=== PATIENT | male | born 1930 | race Two or more races ===

== ENCOUNTER 2016-06-05 09:27 | Emergency (ER) | payer MEDICAID, MEDICARE ==
--- NOTE | 2016-06-05 10:41 | ED Physician Chart ---
Chief Complaint/HPI - Patient Information Date Seen:: 06/05/16 Time Seen:: 10:30 Chief Complaint:: hypertension History of Present Illness:: blood pressure has been 170 systolic recently. Also has been vomiting every time he eats for the last two days. Had diarrhea twice today. Vitals:: Vital Signs - 8 hr 06/05/16 06/05/16 09:40 10:31 Temp 98.5 F 98.2 F HR 82 68 RR 16 16 BP 124/64 124/78 O2 Sat % 98 98 Historian:: Family Member Review:: Nurse's Note Reviewed Review of Systems - Review of Systems General/Constitutional: No fever, No chills Skin: No skin lesions Head: No headache Eyes: No loss of vision ENT: No earache, No sore throat Neck: No neck pain Cardio Vascular: No chest pain Pulmonary: No SOB, No wheezing GI: Nausea, Vomiting, Diarrhea G/U: No dysuria Musculoskeletal: No bone or joint pain, No muscle pain Endocrine: No polyuria, No polydipsia Psychiatric: No prior psych history Hematopoietic: No bruising Allergic/Immuno: No urticaria Neurological: No syncope Past Medical History - Past Medical History Past Medical History: HTN, DM, Arthritis, Other (osteoporosis) Family History: Diabetes Melitus, HTN Social History: Non Smoker, No Alcohol Surgical History: None Psychiatricy History: None Medication: Reviewed Family Medical History - Family Member Mother History Unknown: Yes Physical Exam - Physical Examination General/Constitutional: Well-developed, well-nourished, Alert, No distress Head: Atraumatic Eyes: Lids, conjuctiva normal, PERRL Skin: Nl inspection, No rash, No skin lesions, No ecchymosis ENMT: External ears, nose nl Other ENMT comments:: full dentures Neck: No nuchal rigidity Respiratory: Nl effort/Exclusion, Clear to Auscultation Cardio Vascular: RRR, No murmur, gallop, rubs, NL S1 S2 GI: No tenderness/rebounding/guarding, No organomegaly, No hernia, Normal BS's, Nondistended, No mass/bruits, No McBurney tenderness : No CVA tenderness Extremities: No tenderness or effusion, Normal digits & nails Neuro/Psych: Alert/oriented Misc: Normal back Labs/Radiology/EKG Results - Lab Results Results: Laboratory Tests 06/05/16 10:21 POC Glucose 159 H Laboratory Results - last 24 hr 06/05/16 06/05/16 06/05/16 10:21 10:38 10:38 WBC 10.1 RBC 4.82 Hgb 14.1 Hct 42.2 MCV 87.5 MCH 29.2 MCHC Differential 33.4 RDW 13.0 Plt Count 356 MPV 9.1 Neutrophils % 71.6 Lymphocytes % 19.0 L Monocytes % 7.5 Eosinophils % 1.9 Basophils % 0.0 Sodium 136 Potassium 5.0 Chloride 101 Carbon Dioxide 37.1 H Anion Gap 2.9 L BUN 14 Creatinine 0.9 Est GFR ( Amer) TNP Est GFR (Non-Af Amer) TNP BUN/Creatinine Ratio 15.6 Glucose 147 H POC Glucose 159 H Calcium 9.1 Lipase 5 L Comments:: Laboratory Results - last 24 hr 06/05/16 06/05/16 06/05/16 10:21 10:38 10:38 WBC 10.1 RBC 4.82 Hgb 14.1 Hct 42.2 MCV 87.5 MCH 29.2 MCHC Differential 33.4 RDW 13.0 Plt Count 356 MPV 9.1 Neutrophils % 71.6 Lymphocytes % 19.0 L Monocytes % 7.5 Eosinophils % 1.9 Basophils % 0.0 Sodium 136 Potassium 5.0 Chloride 101 Carbon Dioxide 37.1 H Anion Gap 2.9 L BUN 14 Creatinine 0.9 Est GFR ( Amer) TNP Est GFR (Non-Af Amer) TNP BUN/Creatinine Ratio 15.6 Glucose 147 H POC Glucose 159 H Calcium 9.1 Troponin I Lipase 5 L 06/05/16 13:07 WBC RBC Hgb Hct MCV MCH MCHC Differential RDW Plt Count MPV Neutrophils % Lymphocytes % Monocytes % Eosinophils % Basophils % Sodium Potassium Chloride Carbon Dioxide Anion Gap BUN Creatinine Est GFR ( Amer) Est GFR (Non-Af Amer) BUN/Creatinine Ratio Glucose POC Glucose Calcium Troponin I 0.02 Lipase - EKG Interpretations Rate & Rhythm: NSR; rate 73 Pringle: left Intervals: first degree AV block Comments:: LVH Assessment - Assessment General Assessment: ate meal in the ED without vomiting ED Septic Shock - . Is Septic Shock (SBP<90, OR Lactate>4 mmol\L) present?: No - <6hrs of presentation: Vital Signs: Vital Signs - 8 hr 06/05/16 06/05/16 09:40 10:31 Temp 98.5 F 98.2 F HR 82 68 RR 16 16 BP 124/64 124/78 O2 Sat % 98 98 Reassessment (Disposition) - Reassessment Reassessment Condition:: Improved - Diagnosis Diagnosis:: Viral gastroenteritis; hypertension by history - Aftercare/Follow up Instructions Aftercare/Follow-Up Instructions:: Refer to Discharge Instructions - Patient Disposition Discharge/Transfer:: Home Condition at Disposition:: Stable, Improved
[2016-06-05 10:49] LABS: RED BLOOD COUNT 4.82 Mil/cmm (3.80-5.80)
[2016-06-05 10:53] LABS: % EOSINOPHILS 1.9 % (0.0-5.0); % MONOCYTES 7.5 % (2.0-10.0); % NEUTROPHILS 71.6 % (40.0-80.0); HEMATOCRIT 42.2 % (39.0-49.0); HEMOGLOBIN 14.1 gm/dL (12.6-17.4); MEAN CELL VOLUME 87.5 fl (80-99); MEAN CORPUSCULAR HEMOGLOBIN 29.2 pg (27.0-31.0); MEAN CORPUSCULAR HGB CONC 33.4 pg (28.0-36.0); MEAN PLATELET VOLUME 9.1 fl; NEUTROPHILE ABSOLUTE 7.2 Th/cmm (1.8-8.0); PLATELET COUNT 356 Th/cmm (150-400); WHITE BLOOD COUNT 10.1 Th/cmm (4.8-10.8)
[2016-06-05 11:08] LABS: ANION GAP 2.9 (7.0-16.0); BUN - UREA NITROGEN 14 mg/dL (7-25); BUN/CREATININE RATIO 15.6; CALCIUM SERUM 9.1 mg/dL (8.6-10.3); CARBON DIOXIDE 37.1 mEq/L (21.0-31.0); CHLORIDE 101 mEq/L (98-107); CREATININE - SERUM 0.9 mg/dL (0.7-1.3); GLUCOSE 147 mg/dL (70-105); LIPASE 5 U/L (11-82); SODIUM SERUM 136 mEq/L (136-145)
== END 2016-06-05 14:48 | disposition home or self-care (01) ==
LOC: ER 09:27
DX: A08.4 Viral intestinal infection, unspecified (principal); I10 Essential (primary) hypertension; E11.9 Type 2 diabetes mellitus without complications
CPT/HCPCS: 36415-UA; 80048-TC; 82948-90; 83690-TC; 84484-TC; 85025-TC; 93005